=== PATIENT | male | born 1945 | race Caucasian/White ===

== ENCOUNTER 2016-10-21 21:20 | Emergency (ER) | payer MEDICARE, OTHER ==
[2016-10-21] MEDS ORDERED: ONDANSETRON ODT 4 MG TAB.RAPDIS ONE (21:40)
[2016-10-21 21:43] LABS: BASOPHILS 0.3 % (0.0-2.0); EOSINOPHILS 3.7 % (0.0-6.0); EOSINOPHILS# 0.3 X 10^3uL (0.0-0.4); HEMATOCRIT 46.9 % (42.0-54.0); HEMOGLOBIN 16.5 g/dL (14.0-18.0); LYMPHOCYTES# 1.4 X 10^3uL (0.8-3.8); MEAN CELL VOLUME 100.9 fL (80.0-100.0); MEAN CORPUS. HGB CONCENTRATION 35.3 g/dL (32.0-36.0); MEAN CORPUSCULAR HEMOGLOBIN 35.6 pg (29.0-35.0); MEAN PLATELET VOLUME 8.8 fL (7.4-10.4); MONOCYTES 9.2 % (2.0-10.0); MONOCYTES# 0.7 X 10^3uL (0.2-1.0); NEUTROPHILS 68.8 % (54.0-75.0); NEUTROPHILS# 5.4 X 10^3uL (2.6-6.7); PLATELET COUNT 179 X 10^3uL (130-440); RED BLOOD COUNT 4.65 X 10^6uL (4.20-6.10); RED CELL DISTRIBUTION WIDTH 12.7 % (11.5-14.5); WHITE BLOOD COUNT 7.8 X 10^3uL (3.9-10.7)
[2016-10-21 21:44] LABS: BLOOD UREA NITROGEN 34 mg/dL (9-20); CALCIUM 8.8 mg/dL (8.4-10.2); CHLORIDE 100 mmol/L (98-107); CREATININE 1.2 mg/dL (0.7-1.3); EST GLOMERULAR FILTRATION RATE > 60 mL/min; GLUCOSE 124 mg/dL (70-100); POTASSIUM 3.9 mmol/L (3.5-5.1); SODIUM 136 mmol/L (137-145)
[2016-10-21 21:57] LABS: TROPONIN I < 0.012 ng/mL (0.00-0.034)
[2016-10-21 22:01] LABS: INR 4.4
[2016-10-21] MEDS ORDERED: NORMAL SALINE 250 ML IV ONE (22:44)
--- NOTE | 2016-10-21 23:47 | ER NURSING DOCUMENTATION ---
Nurse's Notes [facility] Name:Gamaliel Sage Age:71 yrs Sex:Male :1945 Arrival Date:10/21/2016 Time:21:20 BedTrauma-A Private MD: Diagnosis:Syncope;Dehydration Presentation: 10/21 21:22 Presenting complaint: Patient states: near syncope evaent. has history of a fib. bw2 21:22 Acuity: CROW 2 bw2 21:23 Transition of care: Home. bw2 21:23 Method Of Arrival: EMS: 410 bw2 Triage Assessment: 21:24 General: Appears in no apparent distress, Behavior is anxious, appropriate for age. bw2 Pain: Denies pain. Cardiovascular: Reports Diaphoresis lightheadedness, syncope. Historical: - Allergies: PENICILLINS; - Tetanus: < 10 years. - Ebola Screening: : Patient negative for fever greater than or equal to 101.5 degrees Fahrenheit, and additional compatible Ebola Virus Disease symptoms. Patient denies exposure to infectious person. Patient denies travel to an Ebola-affected area in the 21 days before illness onset. No symptoms or risks identified at this time. . - Immunization history: Flu Vaccine < 1 year. - Social history: Smoking status: Patient uses tobacco products, current every day smoker. Screenin:25 Infectious Disease Risk None. Abuse screen: Denies threats or abuse. Denies injuries bw2 from another. Nutritional screening: No deficits noted. Assessment: 21:25 See Triage Assessment done by same RN. bw2 Vital Signs: 21:24 BP 117 / 75; Pulse 74; Resp 19 S; Temp 98(O); Pulse Ox 92% on R/A; Weight 81.65 kg; bw2 Height 5 ft. 10 in. (177.80 cm); Pain 0/10; 23:41 BP 116 / 81; Pulse 67; Pulse Ox 90% on R/A; em1 21:24 Body Mass Index 25.83 (81.65 kg, 177.80 cm) 2 ED Course: 21:21 Patient arrived in ED. jt 21:22 Lubna Barron is Primary Nurse. bw2 21:22 Triage completed. bw2 21:23 Walter Roberts MD is Attending Physician. va 21:25 Valuables Remains with patient Bed in low position. Side rails up X2. nuclear monitoring technician bw2 on. Pulse ox on. NIBP on. 21:26 Inserted saline lock: 20 gauge in right antecubital area and blood collected. bw2 21:44 EKG attached bw2 23:16 pt ambulated without assistance. pt denied SOB or chest pain. bw2 23:41 Discontinued IV lock bleeding controlled, pressure dressing applied. em1 Administered Medications: 22:29 Drug: NS 0.9% 250 ml; Route: IV; Rate: bolus; Site: right antecubital; bw2 23:45 Follow up: IV Status: Completed infusion bw2 Outcome: 23:02 Discharge ordered by . paxton 23:44 Discharged to home ambulatory. bw2 23:44 Condition: good 23:44 Discharge Assessment: Patient awake, alert and oriented x 3. No cognitive and/or functional deficits noted. Patient verbalized understanding of disposition instructions. 23:44 Discharge instructions given to patient, Instructed on discharge instructions, follow up and referral plans. Demonstrated understanding of instructions. 23:45 Patient left the ED. bw2 Signatures: Walter Roberts MD MD [facility] em1 Gracie Kessler Beth bw2
--- NOTE | 2016-10-21 23:47 | ER PHYSICIAN DOCUMENTATION ---
Physician Documentation [facility] Name:Gamaliel Sage Age:71 yrs Sex:Male :1945 Arrival Date:10/21/2016 Time:21:20 BedTrauma-A Private MD: Walter Dangelo Disposition: 10/21/16 23:02 Discharged to Home/Self Care. Impression: Syncope, Dehydration. - Condition is Good. - Discharge Instructions: DEHYDRATION (6y-Adult), SYNCOPE, Unk Cause, A Fib - ATRIAL FIBRILLATION, Warfarin Sodium - COUMADIN COAGULOPATHY. - Medical Reconciliation form form. - Follow up: Private Physician; When: 2 - 3 days; Reason: Recheck today's complaints, Continuance of care. - Problem is new. - Symptoms have improved. HPI: 10/21 21:31 This 71 yrs old Male presents to ER via EMS with complaints of Irregular sc Pulse. 21:31 The patient has experienced near-syncope, almost passed out. Onset: The sc symptom(s)/episode began/occurred just prior to arrival. Duration: This was a single episode, that lasted 10 minute(s). Context: the episode(s) was witnessed, by family, occurred at home, occurred while the patient was at rest, Just prior to the episode the patient experienced no apparent symptoms. Associated injury: The patient did not suffer any apparent associated injury. Associated signs and symptoms: Pertinent positives: diaphoresis, lightheadedness. Current symptoms: Currently, the patient is not experiencing any symptoms. The patient has experienced similar episodes in the past, a few times. occas syncope with a fib past couple years, feels much better after ns bolus 400 mL by EMS. Historical: - Allergies: PENICILLINS; - Tetanus: < 10 years. - Ebola Screening: : Patient negative for fever greater than or equal to 101.5 degrees Fahrenheit, and additional compatible Ebola Virus Disease symptoms. Patient denies exposure to infectious person. Patient denies travel to an Ebola-affected area in the 21 days before illness onset. No symptoms or risks identified at this time. . - Immunization history: Flu Vaccine < 1 year. - Social history: Smoking status: Patient uses tobacco products, current every day smoker. ROS: 21:33 Constitutional: Negative for fever, chills, and weight loss. sc Eyes: Negative for injury, pain, redness, and discharge. ENT: Negative for injury, pain, and discharge. Neck: Negative for injury, pain, and swelling. Respiratory: Negative for shortness of breath, cough, wheezing, and pleuritic chest pain. Abdomen/GI: Negative for abdominal pain, nausea, vomiting, diarrhea, and constipation. Back: Negative for injury and pain. MS/Extremity: Negative for injury and deformity. 21:33 Skin: Negative for injury, rash, and discoloration. sc 21:33 Cardiovascular: Positive for palpitations. 21:33 Neuro: Positive for near syncope. Exam: Constitutional: This is a well developed, well nourished patient who is awake, alert, and in no acute distress. Head/Face: Normocephalic, atraumatic. Eyes: Pupils equal round and reactive to light, extra-ocular motions intact. Lids and lashes normal. Conjunctiva and sclera are non-icteric and not injected. Cornea within normal limits. Periorbital areas with no swelling, redness, or edema. ENT: Nares patent. No nasal discharge, no septal abnormalities noted. Tympanic membranes are normal and external auditory canals are clear. Oropharynx with no redness, swelling, or masses, exudates, or evidence of obstruction, uvula midline. Mucous membranes moist. Neck: Trachea midline, no thyromegaly or masses palpated, and no cervical lymphadenopathy. Supple, full range of motion without nuchal rigidity, or vertebral point tenderness. No meningismus. Chest/axilla: Normal chest wall appearance and motion. Nontender with no deformity. No lesions are appreciated. Cardiovascular: Regular rate and rhythm with a normal S1 and S2. No gallops, murmurs, or rubs. Normal PMI, no JVD. No pulse deficits. Respiratory: Lungs have equal breath sounds bilaterally, clear to auscultation and percussion. No rales, rhonchi or wheezes noted. No increased work of breathing, no retractions or nasal flaring. Abdomen/GI: Soft, non-tender, with normal bowel sounds. No distension or tympany. No guarding or rebound. No evidence of tenderness throughout. Back: No spinal tenderness. No costovertebral tenderness. Full range of motion. Skin: Warm, dry with normal turgor. Normal color with no rashes, no lesions, and no evidence of cellulitis. MS/ Extremity: Pulses equal, no cyanosis. Neurovascular intact. Full, normal range of motion, negative Homans's, calves equal bilaterally. 21:33 Neuro: Awake and alert, GCS 15, oriented to person, place, time, and situation. ri Cranial nerves II-XII grossly intact. Motor strength 5/5 in all extremities. Sensory grossly intact. Cerebellar exam normal. Normal gait. 21:33 Cardiovascular: Rate: normal, Rhythm: irregularly irregular, Pulses: Pulses are 2+ in right radial artery and left radial artery. recovered, no diaphoresis in ED, Edema: is not appreciated. Vital Signs: 21:24 BP 117 / 75; Pulse 74; Resp 19 S; Temp 98(O); Pulse Ox 92% on R/A; Weight 81.65 kg; bw2 Height 5 ft. 10 in. (177.80 cm); Pain 0/10; 23:41 BP 116 / 81; Pulse 67; Pulse Ox 90% on R/A; em1 21:24 Body Mass Index 25.83 (81.65 kg, 177.80 cm) bw2 MDM: 21:23 Patient medically screened. ri 21:34 Differential Diagnosis: cardiac arrhythmia, GI bleed, idiopathic syncope, vasovagal sc episode. Neurological re-evaluation: normal neurological exam including cranial nerves, orientation, mentation, motor and sensory exam, cerebellar testing, GCS normal, and normal gait. Data reviewed: vital signs, nurses notes, lab test result(s), EKG, and as a result, I will continue to observe the patient. ECG:. 21:44 EKG attached bw2 23:02 Counseling: I had a detailed discussion with the patient and/or guardian regarding: the ri historical points, exam findings, and any diagnostic results supporting the discharge/admit diagnosis, lab results, the need for outpatient follow up, to return to the emergency department if symptoms worsen or persist or if there are any questions or concerns that arise at home. Medication response: The patient's symptoms have improved. 23:03 ED course: Hold warfarin next dose until contact with PCP for dose adjustments. Or call ri us back if unable to make contact tomorrow.. 10/21 21:43 Order name: CBC AUTO DIF, MDIF/RMOR IF IND; Complete Time: 22:12 EDMS 10/21 22:12 Interpretation: Normal. sc 10/21 21:57 Order name: BASIC METABOLIC PANEL; Complete Time: 22:12 [facility] 10/21 22:12 Interpretation: Normal. ri 10/21 21:57 Order name: TROPONIN I; Complete Time: 22:12 [facility] 10/21 22:12 Interpretation: Normal. ri 10/21 22:01 Order name: PROTIME/INR; Complete Time: 22:12 [facility] 10/21 22:12 Interpretation: Abnormal: INR 4.4. ri 10/22 04:43 Order name: CKMB QUALITATIVE [facility] 10/22 04:43 Order name: TROPONIN QUALITATIVE [facility] 10/22 04:43 Order name: MYOGLOBIN QUALITATIVE [facility] 10/21 21:23 Order name: 12-lead EKG; Complete Time: 21:28 ri EC:34 Rate is 108 beats/min. Rhythm is irregularly irregular. QRS [place] is Normal. MI interval sc is normal. QRS interval is normal. QT interval is normal. No Q waves. T waves are Normal. No ST changes noted. Clinical impression: Atrial Fibrillation. Interpreted by me. Reviewed by me. Dispensed Medications: 22:29 Drug: NS 0.9% 250 ml; Route: IV; Rate: bolus; Site: right antecubital; bw2 23:45 Follow up: IV Status: Completed infusion bw2 Signatures: Walter Roberts MD MD ri Lubna Barron bw2
[2016-10-22 04:42] LABS: CKMB QUALITATIVE NEGATIVE; MYOGLOBIN QUALITATIVE NEGATIVE; TROPONIN QUALITATIVE NEGATIVE
== END 2016-10-21 23:46 | disposition home or self-care (01) ==
LOC: ER 21:20
DX: R55 Syncope and collapse (principal); E86.0 Dehydration; I48.91 Unspecified atrial fibrillation; R42 Dizziness and giddiness; R61 Generalized hyperhidrosis; R79.1 Abnormal coagulation profile; Z79.01 Long term (current) use of anticoagulants; F17.210 Nicotine dependence, cigarettes, uncomplicated; Z99.89 Dependence on other enabling machines and devices; Z74.3 Need for continuous supervision
CPT/HCPCS: 80048; 82553; 83874; 84484; 84512; 85025; 85610; 93010; 96360; 99284; 99285; A0425; A0427; J7050